=== PATIENT | male | born 1960 | race African-American/Black ===

== ENCOUNTER 2024-04-20 19:10 | Inpatient (IN) | payer OTHER ==
[~2024-04-20] VITALS: Ht 177.8 cm; Wt 64.4 kg
[2024-04-20 20:13] LABS: BASOPHILS % 0.5 % (0.0-2.0); EOSINOPHILS % 0.3 % (0.0-5.0); HEMATOCRIT. 31.1 % (42.0-52.0); HEMOGLOBIN. 10.4 g/dL (14.0-18.0); LYMPHOCYTES % 16.3 % (20.0-50.0); MEAN CORPUSCULAR HEMOGLOBIN 36.9 pg (28.0-32.0); MEAN CORPUSCULAR HGB CONC 33.5 g/dL (31.0-37.0); MEAN CORPUSCULAR VOLUME 110.3 fL (80.0-94.0); MEAN PLATELET VOLUME 7.1 fl (7.4-10.4); MONOCYTES % 8.2 % (2.0-8.0); NEUTROPHILS % 74.7 % (40.0-76.0); PLATELET 335 x1000/uL (130-400); RED BLOOD CELL COUNT 2.82 mill/uL (4.7-6.1); RED CELL DISTRIBUTION WIDTH 16.3 % (11.6-14.6)
[2024-04-20 20:15] LABS: ADD RBC MORPHOLOGY YES; DIFFERENTIAL COMMENT 1
[2024-04-20 20:21] LABS: CHLORIDE 104 mEq/L (98-107); POTASSIUM 3.4 mEq/L (3.5-5.1); SODIUM 136 mEq/L (136-145)
[2024-04-20 20:22] LABS: CARBON DIOXIDE 18 mEq/L (21-32)
[2024-04-20 20:23] LABS: CALCIUM 9.1 mg/dL (8.7-10.4)
[2024-04-20 20:27] LABS: CREATININE 1.9 mg/dL (0.6-1.3); GLUCOSE 100 mg/dL (70-105); UREA NITROGEN BLOOD 17 mg/dL (9-23)
[2024-04-20 20:28] LABS: TROPONIN I HIGH SENSITIVITY 5 ng/L (3.0-53)
[2024-04-20 21:47] LABS: PLATELET ESTIMATE NORMAL
[2024-04-20 21:49] LABS: ANISOCYTOSIS 1+
[2024-04-20] MEDS: SODIUM CHLORIDE 0.9% 1,000 ML IV ONE (23:01)
[2024-04-20] MEDS ORDERED: GUAIFENESIN 200MG/10ML SUGAR FREE UDC PO PRN (23:30)
[2024-04-20] MEDS ORDERED: MAGNESIUM/ALUMINUM HYDROXIDE/SIMETHICONE 30ML UDC PO PRN (23:30)
[2024-04-20] MEDS ORDERED: DOCUSATE SODIUM 100MG CAPSULE PO PRN (23:30)
[2024-04-20] MEDS ORDERED: ONDANSETRON HCL 4MG/2ML INJ IV PRN (23:30)
[2024-04-20] MEDS ORDERED: ACETAMINOPHEN 325MG TABLET PO PRN (23:30)
[2024-04-20] MEDS ORDERED: CLONIDINE 0.1MG TABLET PO PRN (23:30)
[2024-04-20] MEDS ORDERED: IPRATROPIUM/ALBUTEROL 0.5-3(2.5)MG/3ML NEB HHN PRN (23:30)
[2024-04-20] MEDS: SODIUM CHLORIDE 0.9% 500 ML IV ONE (23:37)
[2024-04-20 23:44] LABS: TROPONIN I HIGH SENSITIVITY 4 ng/L (3.0-53)
[2024-04-21] MEDS: POTASSIUM CHLORIDE 20MEQ/PACKET PO NR (01:15)
[2024-04-21] MEDS: SODIUM CHLORIDE 0.9% 1,000 ML IV NR (03:06)
[2024-04-21 05:18] LABS: BASOPHILS % 0.5 % (0.0-2.0); DIFFERENTIAL COMMENT 0; EOSINOPHILS % 0.2 % (0.0-5.0); HEMATOCRIT. 27.4 % (42.0-52.0); HEMOGLOBIN. 9.4 g/dL (14.0-18.0); LYMPHOCYTES % 18.6 % (20.0-50.0); MEAN CORPUSCULAR HEMOGLOBIN 36.9 pg (28.0-32.0); MEAN CORPUSCULAR HGB CONC 34.1 g/dL (31.0-37.0); MEAN CORPUSCULAR VOLUME 108.4 fL (80.0-94.0); MEAN PLATELET VOLUME 7.3 fl (7.4-10.4); MONOCYTES % 14.3 % (2.0-8.0); NEUTROPHILS % 66.4 % (40.0-76.0); PLATELET 288 x1000/uL (130-400); RED BLOOD CELL COUNT 2.53 mill/uL (4.7-6.1); RED CELL DISTRIBUTION WIDTH 16.2 % (11.6-14.6); WHITE BLOOD COUNT 6.2 x1000/uL (4.5-11.0)
[2024-04-21 05:26] LABS: CALCIUM 8.6 mg/dL (8.7-10.4); CARBON DIOXIDE 21 mEq/L (21-32); CHLORIDE 108 mEq/L (98-107); POTASSIUM 4.5 mEq/L (3.5-5.1); SODIUM 137 mEq/L (136-145)
[2024-04-21 05:31] LABS: CREATININE 1.8 mg/dL (0.6-1.3); GLUCOSE 83 mg/dL (70-105); IRON 96 ug/dL (65-175)
[2024-04-21 05:32] LABS: LDL CHOLESTEROL 78 mg/dL (5-100); TRIGLYCERIDE 78 mg/dL (0-150); UREA NITROGEN BLOOD 21 mg/dL (9-23)
[2024-04-21 05:33] LABS: CHOLESTEROL 152 mg/dL (<200); HDL CHOLESTEROL 62 mg/dL (>55)
[2024-04-21 05:34] LABS: PHOSPHORUS 4.3 mg/dL (2.5-4.9); TOTAL IRON BINDING CAPACITY 200 ug/dl (250-425)
[2024-04-21 05:36] LABS: FOLIC ACID (FOLATE) SERUM > 20.00 ng/mL (>5.38); T4 FREE 1.26 ng/dL (0.89-1.76); THYROID STIMULATING HORMONE 0.26 uIU/mL (0.55-4.78)
[2024-04-21 05:37] LABS: VITAMIN B12 SERUM 915 pg/mL (211-911)
[2024-04-21 06:10] LABS: *AMPHETAMINES SCREEN URINE NEGATIVE (NEGATIVE); *BARBITURATES SCREEN URINE NEGATIVE (NEGATIVE); *BENZODIAZEPINES SCREEN URINE NEGATIVE (NEGATIVE); *COCAINE SCREEN URINE NEGATIVE (NEGATIVE); CANNABINOID URINE SCREEN PRESUMPTIVE POSITIVE (NEGATIVE); CREATININE URINE RANDOM 46.3 mg/dL; METHADONE URINE SCREEN NEGATIVE (NEGATIVE); OPIATES URINE SCREEN NEGATIVE (NEGATIVE); PHENCYCLIDINE URINE SCREEN NEGATIVE (NEGATIVE); PROTEIN URINE RANDOM < 6 mg/dL
[2024-04-21 06:11] LABS: ECSTASY MDMA SCREEN URINE NEGATIVE (NEGATIVE)
[2024-04-21 06:42] LABS: CLARITY URINE CLEAR (CLEAR); COLOR URINE YELLOW (YELLOW); GLUCOSE URINE NEGATIVE (NEGATIVE); KETONES URINE NEGATIVE (NEGATIVE); LEUKOCYTE ESTERASE URINE NEGATIVE (NEGATIVE); NITRITE URINE NEGATIVE (NEGATIVE); OCCULT BLOOD URINE NEGATIVE (NEGATIVE); PROTEIN URINE NEGATIVE (NEGATIVE); SPECIFIC GRAVITY URINE 1.006 (1.005-1.030); UROBILINOGEN URINE 0.2 E.U./dL (0.2-1.0)
[2024-04-21] MEDS ORDERED: DEXA4TAB PO (16:26)
[2024-04-21] MEDS ORDERED: POTA-204 PO (16:26)
[2024-04-21] MEDS ORDERED: POMA3CAP PO (16:27)
[2024-04-21] MEDS ORDERED: FURO20TA4 PO (16:27)
[2024-04-21] MEDS ORDERED: HYDR-4001 PO (16:27)
[2024-04-21] MEDS ORDERED: SILD20TA13 PO (16:27)
[2024-04-21 16:36] VITALS: BP 120/89; PULSE 66; RESP 18; TEMP 35.78064; O2SAT 99
[2024-04-21 16:38] VITALS: BP 120/89; PULSE 75; RESP 18; TEMP 35.8064
[2024-04-21] MEDS: SODIUM CHLORIDE 0.9% 1,000 ML IV SCH (17:29)
[2024-04-21] MEDS: MAGNESIUM 2 G PREMIX 50 ML IV NR (18:01)
[2024-04-21 20:00] VITALS: BP 120/86; PULSE 67; RESP 18; TEMP 36.3918; O2SAT 100
[2024-04-21] MEDS: ATORVASTATIN CALCIUM 20MG TABLET PO SCH (21:04)
[2024-04-21 21:23] LABS: POTASSIUM 3.9 mEq/L (3.5-5.1)
[2024-04-21 21:25] LABS: CALCIUM 9.1 mg/dL (8.7-10.4)
[2024-04-21 21:29] LABS: CREATININE 1.8 mg/dL (0.6-1.3)
[2024-04-22] VITALS: BP 109/70; PULSE 58; RESP 18; TEMP 36.00288; O2SAT 99
[2024-04-22 04:00] VITALS: BP 119/47; PULSE 58; RESP 18; TEMP 36.50292; O2SAT 99
[2024-04-22 08:00] VITALS: BP 141/79; PULSE 56; RESP 20; TEMP 36.61404; O2SAT 100
[2024-04-22 11:51] VITALS: BP 128/72; PULSE 65; TEMP 97.8; O2SAT 98
[2024-04-22 11:53] VITALS: BP_SYST 123; BP_SYST 128; BP_SYST 154; BP_DIAS 72; BP_DIAS 75; BP_DIAS 90
== END 2024-04-22 13:00 | disposition home or self-care (01) | DRG 641 ==
LOC: ER 19:10 → MICUSO 22:43 → 5WST 04-21 11:20 → 8WST 04-21 15:59
PROVIDERS: ADMIT Internal Medicine; ATTEND Internal Medicine
DX: E86.0 Dehydration (principal); N17.9 Acute kidney failure, unspecified; E86.1 Hypovolemia; E87.6 Hypokalemia; D53.9 Nutritional anemia, unspecified; E78.00 Pure hypercholesterolemia, unspecified; I95.89 Other hypotension; N18.9 Chronic kidney disease, unspecified; I12.9 Hypertensive chronic kidney disease with stage 1 through stage 4 chronic kidney disease, or unspecified chronic kidney disease; R00.1 Bradycardia, unspecified; F12.10 Cannabis abuse, uncomplicated; F17.210 Nicotine dependence, cigarettes, uncomplicated; Z79.899 Other long term (current) drug therapy
CPT/HCPCS: 36415; 71045; 80048; 80061; 80305; 81003; 82570; 82607; 82746; 83540; 83550; 83735; 83880; 84100; 84156; 84439; 84443; 84484; 85025; 93005; 99285; J3475; J7030